=== PATIENT | male | born 1995 | race Caucasian/White ===

== ENCOUNTER 2018-06-20 12:49 | Emergency (ER) | payer MEDICAID ==
[~2018-06-20] VITALS: Ht 170.2 cm; Wt 87.0 kg
[2018-06-20 13:17] VITALS: BP 141/89
== END 2018-06-20 15:56 | disposition home or self-care (01) ==
LOC: ER 12:49
DX: L02.01 Cutaneous abscess of face (principal)
CPT/HCPCS: 99283

== ENCOUNTER 2019-03-04 13:56 | Emergency (ER) | payer MEDICAID ==
[~2019-03-04] VITALS: Ht 167.6 cm; Wt 90.0 kg
[2019-03-04] MEDS ORDERED: MAGNESIUM/ALUMINUM HYDROXIDE/SIMETHICONE 30ML UDC PO STA (15:52)
[2019-03-04] MEDS ORDERED: ONDANSETRON 4MG ODT PO ONE (16:00)
[2019-03-04] MEDS ORDERED: FAMOTIDINE 20MG TABLET PO ONE (16:00)
[2019-03-04 16:14] LABS: BASOPHILS % 0.6 % (0.0-2.0); EOSINOPHILS % 0.9 % (0.0-5.0); HEMATOCRIT. 49.3 % (42.0-52.0); HEMOGLOBIN. 16.7 g/dL (14.0-18.0); MEAN CORPUSCULAR HEMOGLOBIN 31.9 pg (28.0-32.0); MEAN CORPUSCULAR VOLUME 94.1 fL (80.0-94.0); MEAN PLATELET VOLUME 8.3 fl (7.4-10.4); MONOCYTES % 5.3 % (2.0-8.0); NEUTROPHILS % 78.2 % (40.0-76.0); PLATELET 346 x1000/uL (130-400); RED BLOOD CELL COUNT 5.23 mill/uL (4.7-6.1)
[2019-03-04 16:17] LABS: CHLORIDE 107 mEq/L (98-107)
[2019-03-04 16:50] VITALS: BP 122/84
== END 2019-03-04 17:40 | disposition home or self-care (01) ==
LOC: ER 13:56
DX: R10.11 Right upper quadrant pain (principal); R10.13 Epigastric pain; K76.0 Fatty (change of) liver, not elsewhere classified; Z90.49 Acquired absence of other specified parts of digestive tract
CPT/HCPCS: 36415; 76700; 80053; 83690; 85025; 99284; Q0162

== ENCOUNTER 2024-11-29 16:33 | Emergency (ER) | payer MEDICAID, OTHER ==
[~2024-11-29] VITALS: Ht 170.2 cm; Wt 100.0 kg
[2024-11-29 16:45] VITALS: TEMP 36.7; O2SAT 99
[2024-11-29 16:46] VITALS: O2SAT 98
[2024-11-29 18:46] LABS: BASOPHILS % 0.7 % (0.0-2.0); EOSINOPHILS % 1.5 % (0.0-5.0); HEMOGLOBIN. 16.6 g/dL (14.0-18.0); LYMPHOCYTES % 27.9 % (20.0-50.0); MEAN CORPUSCULAR HEMOGLOBIN 31.3 pg (28.0-32.0); MEAN CORPUSCULAR HGB CONC 33.2 g/dL (31.0-37.0); MEAN CORPUSCULAR VOLUME 94.3 fL (80.0-94.0); MEAN PLATELET VOLUME 8.4 fl (7.4-10.4); MONOCYTES % 8.1 % (2.0-8.0); NEUTROPHILS % 61.8 % (40.0-76.0); PLATELET 358 x1000/uL (130-400); RED BLOOD CELL COUNT 5.31 mill/uL (4.7-6.1); WHITE BLOOD COUNT 10.1 x1000/uL (4.5-11.0)
[2024-11-29 18:53] LABS: CHLORIDE 105 mEq/L (98-107); POTASSIUM 3.9 mEq/L (3.5-5.1); SODIUM 138 mEq/L (136-145)
[2024-11-29 18:54] LABS: CALCIUM 9.3 mg/dL (8.7-10.4); CARBON DIOXIDE 24 mEq/L (21-32)
[2024-11-29 18:59] LABS: CREATININE 0.9 mg/dL (0.6-1.3); GLUCOSE 86 mg/dL (70-105); UREA NITROGEN BLOOD 9 mg/dL (9-23)
[2024-11-29] MEDS: HYDROCODONE/ACETAMINOPHEN 5/325MG TABLET PO NR (20:41)
[2024-11-29 20:42] VITALS: BP 137/88; PULSE 89; RESP 18
[2024-11-29] MEDS: BACITRACIN ZINC OINT UDPKT TOP ONE (20:42)
[2024-11-29] MEDS: LIDOCAINE HCL/EPINEPHRINE 1%-EPI 1:100,000 20ML VIAL INFIL ONE (20:42)
[2024-11-29] MEDS: KETOROLAC 30MG/ML VIAL IM STA (20:42)
[2024-11-29] MEDS ORDERED: SULF1TAB48 MT (21:11)
[2024-11-29] MEDS ORDERED: AMOX1TAB16 MT (21:11)
[2024-11-29] MEDS ORDERED: IBUP-2029 PO (21:11)
[2024-11-29] MEDS ORDERED: HYDR-4001 MT (21:11)
== END 2024-11-29 22:02 | disposition home or self-care (01) ==
LOC: ER 16:33
DX: K61.0 Anal abscess (principal)
CPT/HCPCS: 80048; 85025; 36415; 10060; 96372; 99283; J1885; J2004; Z7610 ×4